=== PATIENT | female | born 1970 | race Caucasian/White ===

== ENCOUNTER 2021-08-18 13:02 | Outpatient (CLI) | payer OTHER | END 2021-08-18 13:03 | disposition home or self-care (01) | LOC: CSHMAMMO 13:02 | PROVIDERS: ATTEND Internal Medicine | DX: Z13.820 Encounter for screening for osteoporosis (principal); I10 Essential (primary) hypertension; M85.89 Other specified disorders of bone density and structure, multiple sites | CPT/HCPCS: 77080 ==

== ENCOUNTER 2023-08-23 14:52 | Outpatient (CLI) | payer BC | END 2023-08-23 14:53 | disposition home or self-care (01) | LOC: CSHMAMMO 14:52 | PROVIDERS: ATTEND Family Medicine | DX: Z12.31 Encounter for screening mammogram for malignant neoplasm of breast (principal) | CPT/HCPCS: 77063; 77067 ==

== ENCOUNTER 2025-09-24 09:44 | Outpatient (CLI) | payer BC | END 2025-09-24 09:45 | disposition home or self-care (01) | LOC: CSHMAMMO 09:44 | PROVIDERS: ATTEND Family Medicine | DX: Z12.31 Encounter for screening mammogram for malignant neoplasm of breast (principal); R92.333 Mammographic heterogeneous density, bilateral breasts | CPT/HCPCS: 77063; 77067 ==